=== PATIENT | female | born 1945 | race Caucasian/White ===

== ENCOUNTER 2017-02-25 09:59 | Outpatient (CLI) | payer MEDICARE ==
--- NOTE | 2017-03-09 12:19 | MMO ---
BILATERAL DIGITAL SCREENING MAMMOGRAMS: Date: 02/25/17 This patient's mammogram was interpreted with the assistance of computer-aided detection. Comparison made with exams of 07/11/15. FINDINGS: The breast tissue is heterogeneously dense, which may reduce the sensitivity of mammography. Benign- appearing calcifications are seen in the right breast. No suspicious masses or calcifications are id entified. IMPRESSION: BIRADS 2: Benign Finding(s) Return to annual mammographic screening. POS: [facility]
== END 2017-02-25 10:00 | disposition home or self-care (01) ==
LOC: SCSMAMMO 09:59
PROVIDERS: ATTEND Internal Medicine
DX: Z12.31 Encounter for screening mammogram for malignant neoplasm of breast (principal); Z78.0 Asymptomatic menopausal state
CPT/HCPCS: 77067; G0202

== ENCOUNTER 2017-04-27 05:56 | Inpatient (IN) | payer MEDICARE ==
[2017-04-27 06:16] LABS: #Eosinphils 0.1 thou/uL (0.0-0.7); #Lymphocytes 2.7 thou/uL (1.20-3.40); #Monocytes 0.7 thou/uL (0.11-0.59); #Neutrophils 5.9 thou/uL (1.40-6.50); %Basophils 0.4 % (0.0-1.0); %Lymphocytes 28.7 % (21.0-51.0); %Monocytes 7.7 % (0.0-10.0); Hematocrit 40.8 % (36.0-47.0); Mean Platelet Volume 9.3 fL (7.4-10.4); Red Blood Cell (RBC) Count 4.67 mill/uL (4.20-5.40); White Blood Cell (WBC) Count 9.4 thou/uL (4.8-10.8)
[2017-04-27 06:21] LABS: PTT 22.5 SEC (22.9-36.1); Prothrombin Time 13.5 SEC (12.0-14.7)
[2017-04-27 06:33] LABS: ALT (SGPT) 10 U/L (8-55); AST (SGOT) 14 U/L (5-34); Alkaline Phosphatase 109 U/L (40-150); Anion Gap 13 mmol/L (10-20); BUN (Urea Nitrogen) 10 mg/dL (9.8-20.1); Bilirubin, Total 0.8 mg/dL (0.2-1.2); Calc. Creatinine Clearance 0 mL/min (70-130); Calcium 9.1 mg/dL (7.8-10.44); Carbon Dioxide 21 mmol/L (23-31); Chloride 105 mmol/L (98-107); Estimated GFR-MDRD 65; Globulin 2.4 g/dL (2.4-3.5); Protein, Total 6.4 g/dL (6.0-8.3); Troponin I Less than 0.010 ng/mL (< 0.028)
[2017-04-27] MEDS ORDERED: Ondansetron ODT 4 MG TAB PO PRN (08:32)
[2017-04-27] MEDS ORDERED: Chloraseptic Spray 180 ml Bottle PO PRN (08:32)
[2017-04-27] MEDS ORDERED: Mag-Al 1200 mg/1200 mg/30 ML UDCUP PO PRN (08:32)
[2017-04-27] MEDS ORDERED: Artificial Tears 18 DROP/0.9 ML EA EYE PRN (08:32)
[2017-04-27] MEDS ORDERED: Diabetic Tussin 200 MG/10 ML UDCUP PO PRN (08:32)
[2017-04-27] MEDS ORDERED: Milk Of Magnesia 30 ML UDCUP PO PRN (08:32)
[2017-04-27] MEDS ORDERED: Loperamide HCl 2 MG CAP PO PRN (08:32)
[2017-04-27] MEDS ORDERED: Loratadine 10 MG TAB PO PRN (08:32)
[2017-04-27] MEDS ORDERED: Eucerin (Mineral Oil/Petrolatum,White) 30 gm Jar TOP PRN (08:32)
[2017-04-27] MEDS ORDERED: Senokot 8.6 MG TAB PO PRN (08:32)
[2017-04-27] MEDS ORDERED: Sodium Chloride 0.65% Nasal 44 ML BOT EA NARE PRN (08:32)
[2017-04-27] MEDS ORDERED: Ondansetron HCl/PF 4 MG/2 ML Vial IVP PRN (08:32)
[2017-04-27] MEDS ORDERED: hydrALAZINE 20 MG/ML VIAL SLOW IVP PRN (08:32)
[2017-04-27] MEDS ORDERED: Labetalol HCl 100 MG/20 ML VIAL SLOW IVP PRN (08:32)
[2017-04-27 09:36] VITALS: BMI 26.4
--- NOTE | 2017-04-27 09:44 | CT ---
PRELIMINARY REPORT/[facility]/EMERGENCY AFTER HOURS PROCEDURE: EXAM: CT Head Without Intravenous Contrast EXAM DATE/TIME: Exam ordered 04/27/2017 5:59 AM CLINICAL HISTORY: 72 years old, female; Signs and symptoms; left-sided Weakness, extremity; Patient HX: Stroke alert TECHNIQUE: Axial computed tomography images of the head/brain without intravenous contrast. COMPARISON: No relevant prior studies available. FINDINGS: Brain: There are few scattered hypodensities within the LEFT centrum semi-ovale compatible with age indeterminate white matter infarcts. No hemorrhage. Ventricles: Normal. No ventriculomegaly. Bones/joints: Normal. No acute fracture. Soft tissues: Normal. Sinuses: Unremarkable as visualized. No acute sinusitis. Mastoid air cells: Unremarkable as visualized. No mastoid effusion. IMPRESSION: No acute intracranial hemorrhage. THIS REPORT CONTAINS FINDINGS THAT MAY BE CRITICAL TO PATIENT CARE. The findings were verbally commun icated via telephone conference with PRESLEY LIMA at 6:09 AM SIGNAL MECHANIC on 04/27/2017. The findings were a cknowledged and understood. Thank you for allowing us to participate in the care of your patient. Dictated and Authenticated by: Paramjit Eckert MD 04/27/2017 6:09 AM Central Time ([place] & [place]) FINAL REPORT EMERGENT AFTER HOURS CT OF THE BRAIN: FINDINGS/IMPRESSION: I agree with the findings and impression given in the preliminary report per [facility] physician. No bradley dence of acute intracranial abnormality. POS: [facility]
[2017-04-27] MEDS: Famotidine 20 MG TAB PO SCH ×2 (09:48→21:54)
[2017-04-27] MEDS: Citalopram 20 MG TAB PO SCH (09:48)
[2017-04-27] MEDS: Fish Oil 1,000 MG CAP PO SCH (09:48)
[2017-04-27] MEDS: Amlodipine 5 MG TAB PO SCH (09:48)
[2017-04-27] MEDS: Estradiol 1 MG TAB PO SCH (09:49)
[2017-04-27] MEDS: Thyroid,Pork 90 MG TAB PO SCH (09:49)
[2017-04-27] MEDS: NS 0.9% w/ 20 MEQ KCL 1,000 ML/1,000 ML BAG IV SCH ×2 (10:01→22:01)
[2017-04-27] MEDS: Cyanocobalamin (Vitamin B-12) 1,000 MCG TAB PO SCH (10:03)
--- NOTE | 2017-04-27 11:45 | HP ---
PRIMARY CARE PHYSICIAN: Dr. Marko Snell. REASON FOR ADMISSION: Stroke-like symptoms, status post TPA. HISTORY OF PRESENT ILLNESS: A 72-year-old female with a history of hypertension, hypothyroidism as w ell as dementia who was fine when she went to bed last night around 9:00 p.m. She woke up around 2:0 0 a.m. and at that time, she was not able to get out of bed. She was feeling weak. She called her h usband to get help, but her was not able to help them, because the patient was feeling more w eak on the left side. They called the patient's daughter. When the patient's daughter came to house and at that time, she noticed that she was having left-sided weakness as well as slurred speech. Dirk john gave her aspirin and after that, the patient's symptomatology was improving. Her weakness was impr oving, but still she called paramedics and paramedics brought her to the emergency room. As per repo rt, when the patient was on the way to ER, she had another episode of weakness on the same side. She was feeling more weak and patient had CT brain in our emergency room, at that time, CT brain came ba ck normal. As per report, the patient was brought to ER via airlift. Patient was started on TPA. After that, the patient's symptomatology was again started improving. Carolee álvarez I saw, at that time, patient was almost finishing up her TPA and patient did not have any motor o r sensory symptoms. Her face was completely symmetrical and speech was also normal. Patient did not have any headache, chest pain, palpitation, dizziness. Patient did not have any UTI symptoms. She denies any constipation, diarrhea, melena, hematochezia. The patient is not on any blood thinner med ication. REVIEW OF SYSTEMS: The following complete review of systems was negative, unless otherwise mentioned in the HPI or below: Constitutional: Weight loss or gain, ability to conduct usual activities. Skin: Rash, itching. Eyes: Double vision, pain. ENT/Mouth: Nose bleeding, neck stiffness, pain, tenderness. Cardiovascular: Palpitations, dyspnea on exertion, orthopnea. Respiratory: Shortness of breath, wheezing, cough, hemoptysis, fever or night sweats. Gastrointestinal: Poor appetite, abdominal pain, heartburn, nausea, vomiting, constipation, or diarr hea. Genitourinary: Urgency, frequency, dysuria, nocturia. Musculoskeletal: Pain, swelling. Neurologic/Psychiatric: Anxiety, depression. Allergy/Immunologic: Skin rash, bleeding tendency. Please see my HPI for pertinent positives and negatives. All other review of systems reviewed and ne gative except as mentioned in the HPI. ALLERGIES: CODEINE, PENICILLIN, PNEUMOCOCCAL VACCINE. CURRENT HOME MEDICATIONS: Celexa 40 mg p.o. daily, Namenda 10 mg twice daily, Nexium 40 mg p.o. anisha y, Estradiol 2 mg p.o. daily, [place] Thyroid 90 mg p.o. daily, Lasix 20 mg p.o. b.i.d., vitamin B12 5 000 mcg p.o. daily, vitamin D3 2000 units p.o. daily, Atrovent nasal spray as needed, fish oil 1000 m g p.o. daily, potassium gluconate 99 mg p.o. daily. PAST MEDICAL HISTORY: Hypothyroidism, depression, diastolic dysfunction based on echo in 04/2017, mo derate tricuspid regurgitation based on echocardiography in 06/2016, hypertension, dyslipidemia. PAST PSYCHIATRIC HISTORY: Anxiety and depression, senile dementia. PAST SURGICAL HISTORY: Bilateral foot surgery, hysterectomy. FAMILY HISTORY: Positive for coronary artery disease on paternal side. SOCIAL HISTORY: Patient is . She lives in [place], [place]. She is retired, lives with her usband. No history of tobacco, alcohol or illicit drug abuse. She is able to function all daily act ivities of life before coming to the hospital. EMERGENCY ROOM COURSE: Patient is given TPA. PHYSICAL EXAMINATION: VITAL SIGNS: On arrival to the emergency room, blood pressure 144/65, pulse 75 and regular, respirat ory rate 24, temperature 97.4, saturation 100% on room air, weight 72.2 kilograms. GENERAL: Patient is currently alert, awake, in no obvious acute distress. HEAD: Normocephalic, atraumatic. EYES: Pupils round, reactive to light. Extraocular muscles intact. ENT: Oropharynx within normal limits. Moist mucous membranes. No oral lesions. No pharyngeal eryt daniel, no exudate. NECK: Supple, no JVD, no thyromegaly, no carotid bruit, no jugular venous distention. LUNGS: Clear to auscultation without any rhonchi or rales. CARDIAC: S1, S2 regular. No murmur, no gallop, no rub. ABDOMEN: Soft, bowel sounds present, nontender, nondistended. No organomegaly, no mass, no suprapub ic tenderness. BACK: Unremarkable, no CVA tenderness. EXTREMITIES: Upper extremity, initially she had left-sided weakness before my assessment, but when I saw this patient, at that time she was able to move all four limbs and she did not have any upper o r lower extremity weakness, passive movement of all joints are normal. Lower extremity, similarly ethel li does not have any weakness anymore and she is able to move all four limbs. NEUROLOGIC: Currently, the patient is alert, oriented at baseline, senile dementia present. Cranial nerves II through XII intact. Motor and sensation within normal limits. Reflexes symmetrical. [place] ntar bilateral flexor. PSYCHIATRIC: Normal affect. SIGNIFICANT LABORATORY DATA AND IMAGIN. EKG based on my review reveals normal sinus rhythm, nonspecific ST-T changes. CT brain based on my review, no acute intracranial process. 2. CBC: WBC 9.4, hemoglobin 13.4, platelets 168. INR 1.0. 3. BMP: Sodium 136, potassium 3.3, chloride 105, carbon dioxide 21, BUN 10, creatinine 0.86, glucos e 129, calcium 9.1. LFT: AST 14, ALT 10, alkaline phosphatase 109, albumin 4.0, CK-MB 0.7, troponin I less than 0.010. ASSESSMENT AND PLAN: 1. Stroke-like symptoms, status post TPA. As per report, the patient's symptoms started around 2:00 a.m., but improved by 04:30 and again the patient's symptoms started at 5:00 a.m. and that is why ethel li was meeting criteria for TPA and she was given TPA in the emergency room. As per protocol darío huber, we will keep this patient in the hospital. We will admit her in CCU, post-TPA, we will closel y monitor, we will avoid any antiplatelet or anticoagulant medication for 24 hours. We will start al l those medication tomorrow. We will consult entire stroke team including PT, OT, Speech therapy, ca se dba manager and Neurology. We will do MRI brain, carotid ultrasound. She had a recent echocardiograp hy, so that is why we will not repeat again. We will check lipid profile tomorrow and do neuro check. At this point, we will also start Lipitor 20 mg p.o. at bedtime. 2. Hypokalemia. Patient will be given potassium with IV fluid and we will repeat BMP tomorrow. 3. Hypertension. We will start amlodipine 5 mg p.o. daily. 4. Anxiety and depression. We will continue Celexa 40 mg p.o. daily. 5. Senile dementia. We will continue Namenda 10 mg twice daily. 6. Hypothyroidism. We will continue [place] thyroid 90 mg p.o. daily. 7. Gastroesophageal reflux disease. We will continue Pepcid 20 mg p.o. b.i.d. 8. Deep venous thrombosis prophylaxis. Lovenox 40 mg subcutaneous daily, which we will start tomorr ow. 9. Gastrointestinal prophylaxis, Pepcid 20 mg p.o. b.i.d. 10. Code status: The patient is full code. Patient's is surrogate decision maker. Disposition and plan based on clinical course. We are expecting patient's stay in the hospital more than 2 midnights. Plan of care discussed with the patient and family member at bedside in the emerge ncy room.
--- NOTE | 2017-04-27 12:27 | CON ---
DATE OF CONSULTATION: 04/27/2017 Latrice Reed is a 72-year-old female from [place] who apparently woke up this morning about 5ish, un able to talk or move. She called her who was apparently in bed. She was eventually able to contact him, the ambula nce was called and by the time the ambulance came she felt better. In the ambulance her symptoms reo ccurred with weakness and slurred speech. She was given t-PA as per the stroke protocol. She has re ceived a total 100 mg right now. In the ICU, she is awake, alert, responsive. She is a nonsmoker, nondrinker. She moves all four extremities. PAST MEDICAL HISTORY: 1. Pertinent for dementia. 2. Hypothyroidism. 3. Hypertension. MEDICATIONS: She takes Nexium, estradiol, [place] thyroid 90, Lasix 20, vitamin B12, nose spray, ipra tropium, fish oil, potassium. Shew was in the hospital in 05/2016 for chest pain and underwent cardiac workup that was unremarkable , diastolic dysfunction. PAST SURGICAL HISTORY: Foot surgery, hysterectomy. SOCIAL HISTORY: Secretarial work. REVIEW OF SYSTEMS: Unremarkable. PHYSICAL EXAMINATION: VITAL SIGNS: Pulse 68, blood pressure 146/61, sats are 97% on room air, respirations 18. CHEST: Chest revealed decreased breath sounds, no wheezing. CARDIAC: Normal S1, S2. No gallops. ABDOMEN: Soft, no masses. LABORATORY: White count 9000, H&H 13 and 40, platelet count 168. Electrolytes are normal. Glucose 129. CT head was negative. IMPRESSION: 1. Status post left-sided weakness, slurred speech. Status post t-PA. 2. Allergic rhinitis. 3. Hypothyroidism. 4. Mild hypertension. PLAN: Pulmonary Critical Care will follow while in the ICU. Await input from Neurology. I have started aspirin. Otherwise, supportive care. I will follow.
[2017-04-27] MEDS ORDERED: FLU VACC TS2017-18 (>65YR) 0.5 ML SYRINGE IM ONE (13:00)
--- NOTE | 2017-04-27 14:43 | ULT ---
CAROTID ARTERIAL DOPPLER ULTRASOUND: DATE: 04/27/17 COMPARISON: None. HISTORY: CVA, evaluate for carotid artery disease. TECHNIQUE: Multiplanar Lowry scale sonographic imaging of the arterial structures of the neck obtained with color flow and spectral analysis. FINDINGS: Antegrade blood flow and normal arterial waveforms are documented within the carotid and vertebral sy stem bilaterally. VESSEL PSV (CM/SEC) EDV (CM/SEC) Right CCA 76 19 Right ICA 72 26 Right ECA 73 5 Left CCA 80 13 Left ICA 84 34 Left ECA 52 6 ICA/CCA ratio is 0.9 on the right and 1.1 on the left. IMPRESSION: No hemodynamically significant stenosis on the basis of sonographic velocity criteria. POS: [facility]
[2017-04-27] MEDS: Ipratropium Bromide 0.06% Nasal Inhaler 15ml EA NARE SCH ×2 (19:11→21:54)
[2017-04-27] MEDS: Atorvastatin Calcium 20 MG TAB PO SCH (21:54)
[2017-04-27] MEDS: Acetaminophen 325 MG TAB PO PRN (21:54)
--- NOTE | 2017-04-28 03:08 | CON ---
DATE OF CONSULTATION: 04/27/2017 REFERRING PROVIDER: Dr. Dimitris Thomson. REASON FOR CONSULTATION: Left-sided weakness, status post IV TPA. HISTORY OF PRESENT ILLNESS: Ms. Reed is a pleasant 72-year-old female who has been consul frank for evaluation of left-sided weakness. She is now status post IV TPA. The patient reports that she had been in her usual state of health on yesterday evening she went to sleep around 9:00 p.m., sh alvaro woke up around 2:00 a.m. to go to the bathroom and noticed that she was not able to move her left s john at all. She was also extremely weak on her right side and was not able to talk or make any words , it took her a few minutes to get attention of her and have him called 911. Her had transferred her to nearby facility from where she was airlifted to [facility]. Her symptom s, she reports that she has had 3 episodes in which she got weak and became incoherent and her sympto ms are waxing and waning during that time. She was not able to state whether she was weak only on th e left side or the right side; however, she did mention there was more for generalized weakness and n ot able to get any words out. On arrival here, she was noted to be weak on her left side. The CT sc an of the head was done, which showed no acute intracranial abnormality. At that point, it was decid ed that the patient was meeting the criteria for IV TPA and was given IV TPA and admitted to the hosp ital. Her symptoms have since completely resolved. She denies any headache, chest pain, palpitation , nausea, vomiting, abdominal pain, vision changes, numbness, tingling. PAST MEDICAL HISTORY: Significant for hypertension, hypothyroidism, depression, diastolic dysfunctio n, moderate tricuspid regurgitation, and dyslipidemia. PAST SURGICAL HISTORY: Significant for bilateral foot surgery and hysterectomy. FAMILY HISTORY: Significant for coronary artery disease. SOCIAL HISTORY: She is and retired, lives with her at home. She denies smoking, alc ohol use, or illicit drug use. CURRENT MEDICATIONS: Please review MAR. ALLERGIES: Include CODEINE, PENICILLIN, and PNEUMOCOCCAL VACCINE. REVIEW OF SYSTEMS: As mentioned above in the HPI, otherwise negative. PHYSICAL EXAMINATION: VITAL SIGNS: Blood pressure 132/59, pulse of 77, temperature of 98.3, respirations of 23, O2 sats 99 % on room air. GENERAL: Well-developed, well-nourished female, in no apparent distress. RESPIRATORY: Clear to auscultation bilaterally. CARDIOVASCULAR: Regular rate and rhythm. NEUROLOGICAL: Mental status: The patient is awake, alert, oriented x3. Speech and language: Fluen t speech. Cranial nerves: Pupils are 3 mm and reactive. Visual [place] are intact. Extraocular mu scles are intact. No nystagmus is noted. Face is symmetric. Tongue and uvula are midline. Motor e xam showed normal tone and bulk with a 5/5 strength in both upper and lower extremities. Sensory: S ensation is intact and symmetric. Deep tendon reflexes 2+ reflexes in both upper and lower extremiti es. Babinski: Plantar responses flexion bilaterally. Coordination intact to [id number] and finger tapping bilaterally. LABORATORY DATA: Labs are reviewed, which included CBC, coag panel, CMP, which is significant for po tassium of 3.3, glucose of 129, otherwise unremarkable. IMAGING STUDIES: CT head without contrast was reviewed, which showed no acute intracranial abnormali ty. Echocardiogram results were reviewed, which showed EF of 60% to 65% with a grade I diastolic dys function, otherwise normal. Carotid Doppler results were reviewed, which showed no hemodynamically s ignificant stenosis in both carotid arteries. IMPRESSION: 1. Left hemiparesis, improved of status post IV TPA. 2. Hypertension. 3. Hyperlipidemia. ASSESSMENT AND PLAN: Ms. Reed is a pleasant 72-year-old female who presented with sudden onset of left-sided weakness and difficulty with speech. She has received IV TPA following which her symptoms have resolved. At this time, I will recommend obtaining MRI brain without contrast on morning. I will also recommend obtaining lipid profile. She will be okay to be transferred to the stroke unit on post 24 hours of TPA. I will recommend starting antiplatelet therapy 24 hours pos t TPA. Continue PT, OT. If the patient has completed all the other workup and medically stable and have PT and OT agree with outpatient therapy, the patient can be discharged to home on tomorrow or Thursday morning. Thank you for your consultation.
[2017-04-28 08:41] LABS: #Eosinphils 0.1 thou/uL (0.0-0.7); #Lymphocytes 2.2 thou/uL (1.20-3.40); #Monocytes 0.4 thou/uL (0.11-0.59); #Neutrophils 4.1 thou/uL (1.40-6.50); %Basophils 0.6 % (0.0-1.0); %Eosinophils 1.1 % (0.0-10.0); %Monocytes 5.8 % (0.0-10.0); Hematocrit 37.8 % (36.0-47.0); Mean Platelet Volume 9.5 fL (7.4-10.4); Red Blood Cell (RBC) Count 4.31 mill/uL (4.20-5.40); White Blood Cell (WBC) Count 6.8 thou/uL (4.8-10.8)
[2017-04-28 08:45] LABS: Prothrombin Time 14.2 SEC (12.0-14.7)
[2017-04-28] MEDS: Aspirin 325 mg Enteric Coated Tablet PO SCH (08:51)
[2017-04-28] MEDS: Famotidine 20 MG TAB PO SCH ×2 (08:51→20:23)
[2017-04-28] MEDS: Citalopram 20 MG TAB PO SCH (08:51)
[2017-04-28] MEDS: Fish Oil 1,000 MG CAP PO SCH (08:51)
[2017-04-28] MEDS: Amlodipine 5 MG TAB PO SCH (08:51)
[2017-04-28] MEDS: Estradiol 1 MG TAB PO SCH (08:52)
[2017-04-28] MEDS: Enoxaparin Sodium 40 MG/0.4 ML SYRINGE SC SCH ×2 (08:53→10:43)
[2017-04-28] MEDS: Ipratropium Bromide 0.06% Nasal Inhaler 15ml EA NARE SCH ×2 (08:53→18:39)
[2017-04-28 09:04] LABS: ALT (SGPT) 9 U/L (8-55); AST (SGOT) 13 U/L (5-34); Alkaline Phosphatase 98 U/L (40-150); Anion Gap 9 mmol/L (10-20); BUN (Urea Nitrogen) 10 mg/dL (9.8-20.1); Bilirubin, Total 0.7 mg/dL (0.2-1.2); Calc. Creatinine Clearance 81 mL/min (70-130); Calcium 8.7 mg/dL (7.8-10.44); Carbon Dioxide 22 mmol/L (23-31); Chloride 110 mmol/L (98-107); Cholesterol 213 mg/dl (< 200 Desired); Estimated GFR-MDRD 80; Globulin 2.4 g/dL (2.4-3.5); LDL Cholesterol, Calculated 135 mg/dL
[2017-04-28] MEDS: Cyanocobalamin (Vitamin B-12) 1,000 MCG TAB PO SCH (10:42)
[2017-04-28] MEDS: Thyroid,Pork 90 MG TAB PO SCH (11:05)
--- NOTE | 2017-04-28 11:14 | PDOC.PN ---
- Subjective Encounter Start Date: 04/28/17 Encounter Start Time: 09:40 -: old records requested/rev Patient seen and examined. No new complaints. No overnight events - Objective Resuscitation Status: Resuscitation Status FULL:Full Resuscitation MAR Reviewed: Yes Vital Signs & Weight: Vital Signs (12 hours) Temp Pulse Resp BP BP Pulse Ox 04/28/17 08:51 66 149/62 H 04/28/17 08:32 97.7 F 66 138/65 04/28/17 07:37 97.9 F 66 19 98 04/28/17 03:00 98.7 F Weight Weight 158 lb 11.725 oz Most Recent Monitor Data Heart Rate from ECG 62 NIBP 149/60 NIBP BP-Mean 99 Respiration from ECG 21 SpO2 98 I&O: 04/27/17 04/28/17 04/29/17 06:59 06:59 06:59 Intake Total 2706 680 Output Total 2050 350 Balance 656 330 Result Diagrams: 04/28/17 08:26 04/28/17 08:26 Radiology Reviewed by me: Yes (carotid us) EKG Reviewed by me: Yes (nsr) Phys Exam - Physical Examination Constitutional: NAD HEENT: PERRLA, moist MMs, sclera anicteric Neck: no JVD, supple Respiratory: no wheezing, no rales, no rhonchi Cardiovascular: RRR, no significant murmur, no rub Gastrointestinal: soft, non-tender, no distention, positive bowel sounds Musculoskeletal: no edema, pulses present Neurological: non-focal, normal sensation, moves all 4 limbs Lymphatic: no nodes Psychiatric: normal affect, A&O x 3 Skin: no rash, normal turgor Dx/Plan (1) Acute CVA (cerebrovascular accident) Code(s): I63.9 - CEREBRAL INFARCTION, UNSPECIFIED Status: Acute (2) Hypokalemia Code(s): E87.6 - HYPOKALEMIA Status: Acute (3) Dyslipidemia Code(s): E78.5 - HYPERLIPIDEMIA, UNSPECIFIED Status: Chronic (4) GERD (gastroesophageal reflux disease) Code(s): K21.9 - GASTRO-ESOPHAGEAL REFLUX DISEASE WITHOUT ESOPHAGITIS Status: Chronic (5) Hypertension Code(s): I10 - ESSENTIAL (PRIMARY) HYPERTENSION Status: Chronic (6) Hypothyroidism Code(s): E03.9 - HYPOTHYROIDISM, UNSPECIFIED Status: Chronic (7) Senile dementia Code(s): F03.90 - UNSPECIFIED DEMENTIA WITHOUT BEHAVIORAL DISTURBANCE Status: Chronic - Plan cont current plan of care, PT/OT, dialysis social worker, speech therapy * no complication after tpa * transfer to stroke floor * stroke team evaluation * will consider discharge tomorrow * medication reviewed as below * symptomatic treatment. * DC IVF * MRI today Review of Systems - Review of Systems ENT: negative: Ear Pain, Ear Discharge, Nose Pain, Nose Discharge, Nose Congestion, Mouth Pain, Mouth Swelling, Throat Pain, Throat Swelling, Other Respiratory: negative: Cough, Dry, Shortness of Breath, Hemoptysis, SOB with Excertion, Pleuritic Pain, Sputum, Wheezing Cardiovascular: negative: Chest Pain, Palpitations, Orthopnea, Paroxysmal Noc. Dyspnea, Edema, Light Headedness, Other Gastrointestinal: negative: Nausea, Vomiting, Abdominal Pain, Diarrhea, Constipation, Melena, Hematochezia, Other Genitourinary: negative: Dysuria, Frequency, Incontinence, Hematuria, Retention , Other Musculoskeletal: negative: Neck Pain, Shoulder Pain, Arm Pain, Back Pain, Hand Pain, Leg Pain, Foot Pain, Other Skin: negative: Rash, Lesions, Guru, Bruising, Other - Medications/Allergies Allergies/Adverse Reactions: Allergies Allergy/AdvReac Type Severity Reaction Status Date / Time pneumococcal vaccine Allergy Mild Rash Verified 05/30/16 21:44 [From Pneumovax 23] codeine Allergy Verified 05/30/16 21:39 Penicillins Allergy Verified 05/30/16 21:39 Medications: Current Medications Acetaminophen (Tylenol) 650 mg PO Q4H PRN PRN Reason: Headache/Fever or Pain Last Admin: 04/27/17 21:54 Dose: 650 mg Al Hydroxide/Mg Hydroxide (Maalox) 30 ml PO Q6H PRN PRN Reason: Heartburn or Indigestion Amlodipine Besylate (Norvasc) 5 mg PO DAILY [facility] Last Admin: 04/28/17 08:51 Dose: 5 mg Artificial Tears (Tears Naturale) 0 drop EA EYE PRN PRN PRN Reason: Dry Eyes Aspirin (Ecotrin) 325 mg PO DAILY [facility] Last Admin: 04/28/17 08:51 Dose: 325 mg Atorvastatin Calcium (Lipitor) 20 mg PO HS [facility] Last Admin: 04/27/17 21:54 Dose: 20 mg Cholecalciferol (Vitamin D3) 1,000 units PO DAILY [facility] Last Admin: 04/28/17 10:43 Dose: 1,000 units Citalopram Hydrobromide (Celexa) 40 mg PO DAILY [facility] Last Admin: 04/28/17 08:51 Dose: 40 mg Cyanocobalamin (Vitamin B-12) 5,000 mcg PO DAILY [facility] Last Admin: 04/28/17 10:42 Dose: 5,000 mcg Enoxaparin Sodium (Lovenox) 40 mg SC 0900 [facility] Last Admin: 04/28/17 10:43 Dose: 40 mg Estradiol (Estrace) 2 mg PO DAILY [facility] Last Admin: 04/28/17 08:52 Dose: 2 mg Famotidine (Pepcid) 20 mg PO BID [facility] Last Admin: 04/28/17 08:51 Dose: 20 mg Fish Oil (Fish Oil) 1,000 mg PO DAILY [facility] Last Admin: 04/28/17 08:51 Dose: 1,000 mg Guaifenesin (Robitussin Sf) 200 mg PO Q4H PRN PRN Reason: Cough Hydralazine HCl (Apresoline) 10 mg SLOW IVP Q4H PRN PRN Reason: Systolic BP > 180 Potassium Chloride/Sodium Chloride (Ns 0.9% W/ 20 Meq Kcl) 1,000 ml in 1,000 mls @ 75 mls/hr IV .[id number] [facility] Last Admin: 04/27/17 22:01 Dose: 1,000 mls Ipratropium [place] (Atrovent 0.06% Nasal Inhaler) 0 ml EA NARE TID [facility] Last Admin: 04/28/17 08:53 Dose: 2 sprays Labetalol HCl (Normodyne) 10 mg SLOW IVP Q2H PRN PRN Reason: SBP Greater Than 170 Loperamide HCl (Imodium) 2 mg PO PRN PRN PRN Reason: Diarrhea/Loose Stools Loratadine (Claritin) 10 mg PO DAILYPRN PRN PRN Reason: Sinus Symptoms Magnesium Hydroxide (Milk Of Magnesium) 30 ml PO DAILYPRN PRN PRN Reason: Constipation Memantine (Namenda) 10 mg PO BID [facility] Last Admin: 04/28/17 08:52 Dose: 10 mg Mineral Oil/White Petrolatum (Eucerin Cream) 0 gm TOP BIDPRN PRN PRN Reason: Dry Skin Ondansetron HCl (Zofran Odt) 4 mg PO Q6H PRN PRN Reason: Nausea/Vomiting Ondansetron HCl (Zofran) 4 mg IVP Q6H PRN PRN Reason: Nausea/Vomiting Phenol (Chloraseptic [place] 180 Ml Bot) 0 ml PO PRN PRN PRN Reason: Sore Throat Senna (Senokot) 2 tab PO HSPRN PRN PRN Reason: Constipation Sodium Chloride ([place] Nasal [place] 0.65%) 0 ml EA NARE QIDPRN PRN PRN Reason: Nasal Congestion Thyroid ([place] Thyroid) 90 mg PO DAILY TANIKA Last Admin: 04/28/17 11:05 Dose: 90 mg
[2017-04-28] MEDS: NS 0.9% w/ 20 MEQ KCL 1,000 ML/1,000 ML BAG IV SCH (12:01)
--- NOTE | 2017-04-28 14:43 | PRG ---
DATE OF SERVICE: 04/28/2017 SUBJECTIVE: This morning, awake, alert, responsive, in no distress. OBJECTIVE: VITAL SIGNS: Blood pressure 144/62, sats are 98% on room air, temperature 97, respiration 19. CHEST: No wheezing. CARDIAC: Normal S1 and S2. No gallops. ABDOMEN: Soft. No masses. IMPRESSION: Status post cerebrovascular accident, tissue plasminogen activator. PLAN: No residual defect at this stage. Continue PT. Can be transferred out of the ICU.
[2017-04-28] MEDS: Acetaminophen 325 MG TAB PO PRN ×2 (15:24→21:36)
--- NOTE | 2017-04-28 15:33 | MRI ---
MRI BRAIN WITHOUT CONTRAST: Technique: Multiplanar, multisequential imaging of the brain obtained. History: CVA. FINDINGS: The ventricles have normal size and position. Mild to moderate chronic ischemic white matter changes are seen in both cerebral hemispheres. There is restricted diffusion in the right basal ganglia involving the posterior aspect of the lentif orm nucleus, possibly involving portions of the posterior limb of the internal capsule with extension superiorly into the periventricular white matter on the right. Findings indicate an acute lacunar in farct in the right MCA territory. It does involve right MCA perforators. The intracranial internal carotid arteries and proximal anterior and middle cerebral arteries show fl ow voids. The basilar artery shows flow void. There is a mucous retention cyst in the floor of the right maxillary sinus measuring up to 2 cm. IMPRESSION: 1. Evidence of acute/subacute lacunar infarct right cerebral hemisphere involving right middle cerebr al artery perforators as described above. 2. Mild to moderate ischemic white matter change. 3. Mucous retention cyst floor of the right maxillary sinus. POS: [facility]
[2017-04-28] MEDS: Atorvastatin Calcium 20 MG TAB PO SCH (20:23)
[2017-04-29] MEDS: Citalopram 20 MG TAB PO SCH (09:13)
[2017-04-29] MEDS: Amlodipine 5 MG TAB PO SCH (09:13)
[2017-04-29] MEDS: Aspirin 325 mg Enteric Coated Tablet PO SCH (09:13)
[2017-04-29] MEDS: Enoxaparin Sodium 40 MG/0.4 ML SYRINGE SC SCH (09:14)
[2017-04-29] MEDS: Cyanocobalamin (Vitamin B-12) 1,000 MCG TAB PO SCH (09:14)
[2017-04-29] MEDS: Estradiol 1 MG TAB PO SCH (09:15)
[2017-04-29] MEDS: Famotidine 20 MG TAB PO SCH (09:16)
[2017-04-29] MEDS: Fish Oil 1,000 MG CAP PO SCH (09:16)
[2017-04-29] MEDS: Thyroid,Pork 90 MG TAB PO SCH (09:17)
--- NOTE | 2017-04-29 10:18 | PRG ---
DATE OF SERVICE: 04/29/2017 This morning she is awake, alert, responsive, in no distress. No headache. She moves all 4 extremities, no shortness of breath. PHYSICAL EXAMINATION: VITAL SIGNS: Temperature 98, blood pressure 133/60, respirations 18. CHEST: Chest reveals decreased breath sounds, no wheezing. CARDIAC: Normal S1, S2. ABDOMEN: Soft, no masses. IMPRESSION: Status post cerebrovascular accident with TPA on board. MRI showing evidence of evolving right middle cerebral artery infarct. PLAN: From a pulmonary standpoint of view disposition as per Neurology. We will follow at a distance. THUAN
--- NOTE | 2017-04-29 11:45 | DIS ---
DATE OF ADMISSION: 04/27/2017 DATE OF DISCHARGE: 04/29/2017 PRIMARY CARE PHYSICIAN: Dr. Zhu. DISCHARGE DISPOSITION: Home. PRIMARY DISCHARGE DIAGNOSES: 1. Acute lacunar infarct. 2. Hypokalemia, corrected. SECONDARY DISCHARGE DIAGNOSES: Senile dementia, hypothyroidism, hypertension, gastroesophageal reflu x disease, and dyslipidemia. PRIMARY PROCEDURE/OPERATION: None. RADIOLOGICAL INVESTIGATION: CT brain on admission showed no acute intracranial process. MRI brain c onfirmed lacunar stroke in right MCA territory. Carotid ultrasound negative for any stenosis. Echoc ardiography showed normal EF and diastolic dysfunction. SIGNIFICANT LABORATORIES: WBC 6.8, hemoglobin 12.5, platelets 148. INR 1.1. Sodium 137, potassium 3.9, BUN 10, creatinine 0.72, calcium 8.7. LFTs normal. LDL 135. TSH 0.83, homocysteine 5.35. DISCHARGE MEDICATIONS: Amlodipine 5 mg p.o. daily, aspirin 325 mg p.o. daily, Lipitor 20 mg p.o. at bedtime, vitamin D3 1000 units p.o. daily, Celexa 40 mg p.o. daily, vitamin B12 5000 mcg p.o. daily, Nexium 40 mg p.o. daily, estradiol 2 mg p.o. daily, Pepcid 20 mg p.o. b.i.d., Atrovent nasal spray t. i.d., Namenda 10 mg p.o. b.i.d., [place] thyroid 75 mg p.o. daily. CONTRAINDICATIONS: None. CODE STATUS: FULL CODE. INPATIENT CONSULTANTS: Dr. Angélica Arreola, Neurology; Dr. Meyers was seeing this patient for ICU patient. TEST RESULTS PENDING ON DISCHARGE: None. ALLERGIES: PNEUMOCOCCAL VACCINE, CODEINE, PENICILLIN. DISCHARGE PLAN: Post hospital, the patient will follow up with primary care physician, Dr. Angélica العلي as instructed. HOSPITAL COURSE: A 72-year-old female with above-mentioned medical problem who was admitted by me. Please see my HPI for further details. The patient was having acute onset of neurological symptoms w ith stroke-like symptoms with weakness on the left side upper and lower extremity with slurred speech which started at 2:00 a.m. and after that the patient had improvement by day 4:30 and symptoms again restarted at 5:00 a.m. The patient was brought to ER via helicopter and the patient was in window p eriod for TPA and that is why TPA was given and after that the patient had dramatic improvement in he r weakness and speech. The patient was observed in CCU after TPA for 24 hours and then we transferre d her back to stroke floor. This patient is doing great and she is ambulatory. She does not need an y rehabilitation placement. Entire stroke team saw this patient and we did stroke workup while in [facility]. During this admission, we started statin therapy and antihypertensive medication was gordo nged. The patient was seen and examined at bedside today. Plan of care [facility] REVIEW OF SYSTEMS: Negative. PHYSICAL EXAMINATION: VITAL SIGNS: Currently, temperature 98.0, pulse 63, respiratory rate 18, blood pressure 133/63, weig ht 180 pounds. GENERAL: The patient is currently alert, awake, no acute distress. HEAD: Normocephalic, atraumatic. LUNGS: Clear. CARDIAC: S1, S2 regular without any murmur. ABDOMEN: Soft and benign. EXTREMITIES: No edema. NEUROLOGIC: Nonfocal examination. Overall, this patient is medically stable for discharge today. Total time spent on discharge 31 minutes.
[2017-04-29 12:07] VITALS: BP 134/64; TEMP 98.7
== END 2017-04-29 13:12 | disposition home health service (06) | DRG 62 ==
LOC: ERS 05:56 → CCU 06:40 → 2SE 04-28 11:46
PROVIDERS: ADMIT Internal Medicine; ATTEND Internal Medicine
PROC: 3E03317 Introduction of Other Thrombolytic into Peripheral Vein, Percutaneous Approach (ICD-10-PCS; principal; 2017-04-27)
PROC: B030ZZZ Magnetic Resonance Imaging (MRI) of Brain (ICD-10-PCS; 2017-04-28)
DX: I63.9 Cerebral infarction, unspecified (principal); G81.94 Hemiplegia, unspecified affecting left nondominant side; F03.90 Unspecified dementia, unspecified severity, without behavioral disturbance, psychotic disturbance, mood disturbance, and anxiety; I10 Essential (primary) hypertension; E03.9 Hypothyroidism, unspecified; E87.6 Hypokalemia; K21.9 Gastro-esophageal reflux disease without esophagitis; J30.9 Allergic rhinitis, unspecified; F32.9 Major depressive disorder, single episode, unspecified; E78.5 Hyperlipidemia, unspecified; F41.9 Anxiety disorder, unspecified; R47.81 Slurred speech; Z88.5 Allergy status to narcotic agent; Z88.0 Allergy status to penicillin; Z88.7 Allergy status to serum and vaccine; Z82.49 Family history of ischemic heart disease and other diseases of the circulatory system
CPT/HCPCS: 36415; 36416; 70450; 70551; 80053; 80061; 82553; 83090; 84443; 84484; 85025; 85610; 85730; 93005; 93306; 93880; 96365; 99292; A4216; G8978-GP-CI; G8979-GP-CI; G8980-GP-CI; G8987-GO-CI; G8988-GO-CI; G8989-GO-CI; G8996-GN-CH; G8997-GN-CH; J1650; J2997

== ENCOUNTER 2017-05-12 12:22 | Emergency (ER) | payer MEDICARE | END 2017-05-12 13:16 | disposition home or self-care (01) | LOC: SCSER 12:22 | DX: J06.9 Acute upper respiratory infection, unspecified (principal); E03.9 Hypothyroidism, unspecified; E78.5 Hyperlipidemia, unspecified; I10 Essential (primary) hypertension; F41.9 Anxiety disorder, unspecified | CPT/HCPCS: 99282 ==

== ENCOUNTER 2018-05-06 11:45 | Outpatient (CLI) | payer MEDICARE ==
--- NOTE | 2018-05-06 14:06 | MMO ---
BILATERAL SCREENING MAMMOGRAM: Date: 05/06/18 HISTORY: Screening. COMPARISON: Mammogram dated 02/25/17. TECHNIQUE: Bilateral screening CC and MLO mammograms. This patient's mammogram was interpreted with the assistance of computer-aided detection. FINDINGS: There are scattered fibroglandular densities. Benign calcifications within the right breast. The breasts are heterogeneously dense, which may obscure small masses. No suspicious mass, architectu ral distortion, or microcalcifications. IMPRESSION: BIRADS 2: Benign Finding(s) Continued annual mammographic screening is recommended. POS: [facility]
== END 2018-05-06 11:46 | disposition home or self-care (01) ==
LOC: SCSMAMMO 11:45
PROVIDERS: ATTEND Internal Medicine
DX: Z12.31 Encounter for screening mammogram for malignant neoplasm of breast (principal)
CPT/HCPCS: 77067

== ENCOUNTER 2019-01-18 13:56 | Emergency (ER) | payer MEDICARE ==
[~2019-01-18 13:56] MED LIST: Iopamidol 370 76% 100 ML VIAL ONE
[2019-01-18 14:49] LABS: #Basophils 0.1 thou/uL (0.0-0.2); #Eosinphils 0.1 thou/uL (0.0-0.7); #Lymphocytes 1.9 thou/uL (1.20-3.40); #Monocytes 0.4 thou/uL (0.11-0.59); #Neutrophils 4.7 thou/uL (1.40-6.50); %Basophils 0.8 % (0.0-1.0); %Eosinophils 1.4 % (0.0-10.0); %Lymphocytes 26.6 % (21.0-51.0); %Monocytes 6.1 % (0.0-10.0); %Neutrophils 65.2 % (42.0-75.0); Hemoglobin 12.8 g/dL (12.0-16.0); Mean Corpuscular HGB CONC 33.9 g/dL (32.0-36.0); Mean Corpuscular Hemoglobin 29.1 pg (27.0-31.0); Mean Corpuscular Volume 85.9 fL (78.0-98.0); Mean Platelet Volume 10.9 fL (7.4-10.4); Platelet Count 173 thou/uL (130-400); RBC Distribution Width 12.3 % (11.5-14.5); Red Blood Cell (RBC) Count 4.41 mill/uL (4.20-5.40); White Blood Cell (WBC) Count 7.1 thou/uL (4.8-10.8)
--- NOTE | 2019-01-18 15:00 | RAD ---
PORTABLE CHEST 1 VIEW: Date: 01/18/19 Time: 1448 hours HISTORY: Dyspnea. FINDINGS: Comparison made with exam of 03/16/18. The heart size is normal. The aorta is tortuous. The lungs are expanded without focal areas of consol idation, pneumothoraces, or pleural effusions. There are postop changes of rotator cuff repair bilate rally. IMPRESSION: No acute process. POS: [facility]
[2019-01-18 15:03] LABS: ALT (SGPT) 13 U/L (8-55); AST (SGOT) 17 U/L (5-34); Albumin 4.1 g/dL (3.4-4.8); Alkaline Phosphatase 102 U/L (40-150); Anion Gap 12 mmol/L (10-20); BUN (Urea Nitrogen) 11 mg/dL (9.8-20.1); Bilirubin, Total 0.6 mg/dL (0.2-1.2); CK (CPK) 41 U/L (29-168); Calc. Creatinine Clearance 0 mL/min (70-130); Calcium 9.1 mg/dL (7.8-10.44); Carbon Dioxide 27 mmol/L (23-31); Chloride 105 mmol/L (98-107); Estimated GFR-MDRD 62; Globulin 2.5 g/dL (2.4-3.5); Glucose 87 mg/dL (83-110); Lipase 21 U/L (8-78); Potassium 3.5 mmol/L (3.5-5.1); Protein, Total 6.6 g/dL (6.0-8.3); Sodium 140 mmol/L (136-145)
--- NOTE | 2019-01-18 17:13 | CT ---
CTA OF THE THORAX UTILIZING IV CONTRAST 3D REFORMATTED IMAGING AND PE PROTOCOL 01/18/19 INDICATION: Postop three weeks from left shoulder surgery with shortness of breath and elevated D-dimer. COMPARISON: None. FINDINGS: No confluent air space opacity or pleural effusion is evident. There are areas of subsegmental volume loss seen within a dependent fashion involving both lower lobes. No central or segmental pulmonary embolus is demonstrated. No enlarged lymph nodes are present. Small amount of fluid is seen within the pericardial recess. The re is a small hiatal hernia. Visualized adrenal glands are normal appearing. There is scattered degen erative and osteoarthritic change. No definite acute osseous abnormality is evident. IMPRESSION: No central or segmental pulmonary embolus. POS: [facility]
== END 2019-01-18 16:05 | disposition home or self-care (01) ==
LOC: SCSER 13:56
DX: R06.02 Shortness of breath (principal); E03.9 Hypothyroidism, unspecified; E78.5 Hyperlipidemia, unspecified; E78.00 Pure hypercholesterolemia, unspecified; I10 Essential (primary) hypertension; F41.9 Anxiety disorder, unspecified; Z79.899 Other long term (current) drug therapy
CPT/HCPCS: 71045; 71275; 80053; 82550; 83690; 83880; 84484; 85025; 85379; 93005; Q9967

== ENCOUNTER 2019-07-12 13:05 | Outpatient (CLI) | payer MEDICARE ==
--- NOTE | 2019-07-12 14:29 | MMO ---
Bilateral MAMMO Bilat Screen DDI+NADIRA. CLINICAL HISTORY: Patient is 74 years old and is seen for screening. The patient has no family history of breast cancer. The patient has no personal history of cancer. The patient has a history of right Excisional Biopsy more than 10 years ago - benign. VIEWS: The views performed were: bilateral craniocaudal with tomosynthesis; bilateral mediolateral oblique with tomosynthesis; and bilateral exaggerated craniocaudal. This study has been interpreted with the assistance of computer-aided detection. MAMMOGRAM FINDINGS: The breasts are heterogeneously dense, which could obscure a lesion on mammography. There are stable benign appearing calcifications seen in both breasts. There are no suspicious masses, suspicious calcifications, or new areas of architectural distortion. IMPRESSION: THERE IS NO MAMMOGRAPHIC EVIDENCE OF MALIGNANCY. A ROUTINE FOLLOW-UP MAMMOGRAM IN 1 YEAR IS RECOMMENDED. THE RESULTS OF THIS EXAM WERE SENT TO THE PATIENT. ACR BI-RADS Category 2 - Benign finding MAMMOGRAPHY NOTE: 1. A negative mammogram report should not delay a biopsy if a dominant of clinically suspicious mass is present. 2. Approximately 10% to 15% of breast cancers are not detected by mammography. 3. Adenosis and dense breasts may obscure an underlying neoplasm. Reported by: GUILLERMO ALEJANDRO MD Electonically Signed: [id number]
== END 2019-07-12 13:06 | disposition home or self-care (01) ==
LOC: BICMAMMO 13:05
PROVIDERS: ATTEND Internal Medicine
DX: Z12.31 Encounter for screening mammogram for malignant neoplasm of breast (principal); Z91.89 Other specified personal risk factors, not elsewhere classified
CPT/HCPCS: 77063; 77067

== ENCOUNTER 2020-02-10 13:57 | Outpatient (CLI) | payer MEDICARE ==
--- NOTE | 2020-02-10 17:17 | MRI ---
MR the pelvis with and without IV contrast INDICATION: Follow-up cystic abnormality of the left adnexa COMPARISON: Prior CT the abdomen and pelvis with contrast dated January 25, [address] of the abd omen and pelvis dated August 20, 2016. Comparisons are also made with a prior CT the abdomen and pelvis dated June 20, 2006 Contrast: 14 mL of Multihance was utilized for the exam. FINDINGS: Corresponding to the cystic abnormalities seen within the region of the left adnexa is an enlarging c ystic lesion abutting the left posterior lateral dome of the bladder. The lesion is loculated and has very thin benjamin. The lesion itself measures 4.2 x 2.2 x 2.1 cm. There is very thin enhancement of the benjamin and internal septations without definitely nodular enhancing component. There is some mild enhancement along the posterior margin of the lesion likely related to some residual ovarian tis serene. The right ovary is either surgically absent or completely atrophic. The uterus is surgically absent. No free fluid or enlarged lymph nodes are evident. Visualized bladder, rectum and perirectal soft tissues are unremarkable appearing. There are scattered diverticula involving the colon. IMPRESSION: 1. The loculated cystic lesion of the left adnexa is most suspicious for a ovarian inclusion cyst. Th ere is some mild irregular enhancement along the posterior margin of the lesion likely related to some residual margin of ovarian tissue. As a conservative measure would recommend a follow-up MRI of the pelvis with and without contrast in 6 months to document stability. 2. Diverticulosis Transcribed Date/Time: 02/10/2020 5:23 PM
== END 2020-02-10 13:58 | disposition home or self-care (01) ==
LOC: SCSMRI 13:57
PROVIDERS: ATTEND Internal Medicine
DX: R19.04 Left lower quadrant abdominal swelling, mass and lump (principal); K57.30 Diverticulosis of large intestine without perforation or abscess without bleeding; N83.8 Other noninflammatory disorders of ovary, fallopian tube and broad ligament
CPT/HCPCS: 72197; 82565